=== PATIENT | male | born 1960 | race African-American/Black ===

== ENCOUNTER 2018-12-20 23:49 | Emergency (ER) | payer MEDICAID, OTHER ==
[~2018-12-20] VITALS: Ht 180.3 cm; Wt 113.0 kg
[2018-12-21] MEDS ORDERED: ALBUTEROL (0.5%) 2.5MG/0.5ML NEB HHN ONE (03:30)
[2018-12-21 04:57] VITALS: BP 159/76
== END 2018-12-21 04:59 | disposition home or self-care (01) ==
LOC: ER 23:49
DX: J40 Bronchitis, not specified as acute or chronic (principal); E11.9 Type 2 diabetes mellitus without complications; H54.40 Blindness, one eye, unspecified eye; Z89.511 Acquired absence of right leg below knee
CPT/HCPCS: 71045; 82962; 94640; 99283; J7611; Z7610

== ENCOUNTER 2019-08-03 22:53 | Emergency (ER) | payer MEDICAID ==
[~2019-08-03] VITALS: Ht 180.3 cm; Wt 123.0 kg
[2019-08-03] MEDS ORDERED: HYDROCODONE/ACETAMINOPHEN 5/325MG TABLET PO STA (23:33)
[2019-08-03] MEDS ORDERED: SODIUM CHLORIDE 0.9% 1,000 ML IV ONE (23:33)
[2019-08-03] MEDS ORDERED: VANCOMYCIN 1 G PREMIX 200 ML IV ONE (23:45)
[2019-08-03 23:56] LABS: BASOPHILS % 0.5 % (0.0-2.0); EOSINOPHILS % 1.3 % (0.0-5.0); HEMATOCRIT. 41.9 % (42.0-52.0); HEMOGLOBIN. 13.7 g/dL (14.0-18.0); LYMPHOCYTES % 11.2 % (20.0-50.0); MEAN CORPUSCULAR HEMOGLOBIN 24.5 pg (28.0-32.0); MEAN CORPUSCULAR VOLUME 75.1 fL (80.0-94.0); MEAN PLATELET VOLUME 7.6 fl (7.4-10.4); MONOCYTES % 8.8 % (2.0-8.0); NEUTROPHILS % 78.2 % (40.0-76.0); PLATELET 293 x1000/uL (130-400); RED BLOOD CELL COUNT 5.58 mill/uL (4.7-6.1); RED CELL DISTRIBUTION WIDTH 16.1 % (11.6-14.6)
[2019-08-04] LABS: CHLORIDE 107 mEq/L (98-107)
[2019-08-04] MEDS ORDERED: CLONIDINE 0.2MG TABLET PO ONE
[2019-08-04 00:01] LABS: PROTHROMBIN TIME 11.3 sec (9.6-11.0)
[2019-08-04 05:29] VITALS: BP 118/62
== END 2019-08-04 04:40 | disposition short-term general hospital (02) ==
LOC: ER 22:53 → CANBEDREQ 08-04 06:13
DX: T87.43 Infection of amputation stump, right lower extremity (principal); L03.115 Cellulitis of right lower limb; I16.0 Hypertensive urgency; E11.9 Type 2 diabetes mellitus without complications; Y84.8 Other medical procedures as the cause of abnormal reaction of the patient, or of later complication, without mention of misadventure at the time of the procedure; Y92.89 Other specified places as the place of occurrence of the external cause
CPT/HCPCS: 36415; 73562; 80053; 82962; 84145; 84484; 85025; 85610; 87040; 96365; 99291; J3370; J7030

== ENCOUNTER 2020-02-08 19:36 | Emergency (ER) | payer MEDICAID ==
[~2020-02-08] VITALS: Ht 172.7 cm; Wt 120.0 kg
[2020-02-08] MEDS ORDERED: ACETAMINOPHEN 325MG TABLET PO ONE (20:45)
[2020-02-08] MEDS ORDERED: ACETAMINOPHEN WITH CODEINE 300/30MG TABLET PO ONE (21:00)
[2020-02-08 21:43] VITALS: BP 168/73
== END 2020-02-08 21:45 | disposition home or self-care (01) ==
LOC: ER 19:36
DX: R10.31 Right lower quadrant pain (principal); E11.9 Type 2 diabetes mellitus without complications; I10 Essential (primary) hypertension
CPT/HCPCS: 99283

== ENCOUNTER 2020-08-30 23:34 | Emergency (ER) | payer MEDICAID, MEDICARE ==
[~2020-08-30] VITALS: Ht 180.3 cm; Wt 150.0 kg
[2020-08-30 23:45] VITALS: BP 189/80
[2020-08-31] MEDS ORDERED: SULF1TAB48 MT (03:42)
[2020-08-31] MEDS ORDERED: CEPH500T MT (03:42)
[2020-08-31] MEDS ORDERED: SULFAMETHOXAZOLE/TRIMETHOPRIM 800/160MG TABLET PO ONE (03:45)
[2020-08-31] MEDS ORDERED: CEPHALEXIN 250MG CAPSULE PO ONE (03:45)
[2020-08-31] MEDS ORDERED: ACETAMINOPHEN 325MG TABLET PO ONE (04:15)
[2020-08-31 05:27] LABS: CLARITY URINE CLEAR (CLEAR); COLOR URINE YELLOW (YELLOW); KETONES URINE NEGATIVE (NEGATIVE); LEUKOCYTE ESTERASE URINE NEGATIVE (NEGATIVE); NITRITE URINE NEGATIVE (NEGATIVE); OCCULT BLOOD URINE TRACE (NEGATIVE); PH URINE 5.5 (4.5-8.0); PROTEIN URINE 2+ (NEGATIVE); SPECIFIC GRAVITY URINE 1.012 (1.005-1.030); UROBILINOGEN URINE 0.2 E.U./dL (0.2-1.0)
== END 2020-08-31 04:54 | disposition home or self-care (01) ==
LOC: ER 23:34
DX: L03.314 Cellulitis of groin (principal); E11.9 Type 2 diabetes mellitus without complications; E66.01 Morbid (severe) obesity due to excess calories; H54.40 Blindness, one eye, unspecified eye; I88.9 Nonspecific lymphadenitis, unspecified; Z89.512 Acquired absence of left leg below knee; Z89.511 Acquired absence of right leg below knee; Z79.899 Other long term (current) drug therapy; Z68.42 Body mass index [BMI] 45.0-49.9, adult
CPT/HCPCS: 81003; 93005; 99284

== ENCOUNTER 2020-10-05 02:44 | Inpatient (IN) | payer MEDICAID ==
[~2020-10-05] VITALS: Ht 167.6 cm; Wt 172.8 kg
[~2020-10-05 02:44] MED LIST: CEPH500T MT; SULF1TAB48 MT
[2020-10-05 04:07] LABS: BASOPHILS % 0.5 % (0.0-2.0); EOSINOPHILS % 2.5 % (0.0-5.0); HEMATOCRIT. 35.7 % (42.0-52.0); HEMOGLOBIN. 11.4 g/dL (14.0-18.0); MEAN CORPUSCULAR HEMOGLOBIN 23.5 pg (28.0-32.0); MEAN PLATELET VOLUME 7.3 fl (7.4-10.4); MONOCYTES % 11.7 % (2.0-8.0); NEUTROPHILS % 73.3 % (40.0-76.0); PLATELET 334 x1000/uL (130-400); RED BLOOD CELL COUNT 4.83 mill/uL (4.7-6.1); RED CELL DISTRIBUTION WIDTH 16.4 % (11.6-14.6)
[2020-10-05 04:10] LABS: CHLORIDE 110 mEq/L (98-107)
[2020-10-05] MEDS ORDERED: MORPHINE SULFATE 4 MG/ML CPJ (NOT FOR IM USE) IV ONE (05:45)
[2020-10-05 12:00] VITALS: BP 106/63
[2020-10-05] MEDS: AMLODIPINE 10MG TABLET PO SCH (12:31)
[2020-10-05] MEDS: HYDROCODONE/ACETAMINOPHEN 10/325MG TABLET PO PRN ×2 (12:32→22:19)
[2020-10-05 13:00] VITALS: BP 155/73
[2020-10-05] MEDS: ONDANSETRON HCL 4MG/2ML INJ IV PRN ×2 (15:36→22:17)
[2020-10-05 16:00] VITALS: BP 153/64
[2020-10-05] MEDS: ACETAMINOPHEN 325MG TABLET PO PRN (17:54)
[2020-10-05] MEDS: ENOXAPARIN 30MG/0.3ML SYR SUBCUT SCH (17:54)
[2020-10-05 20:00] VITALS: BP 99/64
[2020-10-05] MEDS ORDERED: ENOXAPARIN 40MG/0.4ML SYR SUBCUT SCH (21:00)
[2020-10-06] VITALS: BP 105/85
[2020-10-06] MEDS ORDERED: MORPHINE SULFATE 2 MG/ML CPJ (NOT FOR IM USE) IV SCH (01:00)
[2020-10-06 04:00] VITALS: BP 158/73
[2020-10-06 04:19] LABS: BASOPHILS % 0.3 % (0.0-2.0); EOSINOPHILS % 0.1 % (0.0-5.0); HEMATOCRIT. 37.1 % (42.0-52.0); HEMOGLOBIN. 11.5 g/dL (14.0-18.0); LYMPHOCYTES % 8.8 % (20.0-50.0); MEAN CORPUSCULAR HEMOGLOBIN 23.1 pg (28.0-32.0); MEAN CORPUSCULAR VOLUME 74.6 fL (80.0-94.0); MEAN PLATELET VOLUME 7.2 fl (7.4-10.4); MONOCYTES % 4.5 % (2.0-8.0); NEUTROPHILS % 86.3 % (40.0-76.0); PLATELET 338 x1000/uL (130-400); RED BLOOD CELL COUNT 4.96 mill/uL (4.7-6.1); RED CELL DISTRIBUTION WIDTH 16.4 % (11.6-14.6)
[2020-10-06] MEDS: ENOXAPARIN 30MG/0.3ML SYR SUBCUT SCH ×2 (05:56→18:15)
[2020-10-06 08:00] VITALS: BP 163/78
[2020-10-06] MEDS: ONDANSETRON HCL 4MG/2ML INJ IV PRN ×2 (08:25→22:52)
[2020-10-06] MEDS: AMLODIPINE 10MG TABLET PO SCH (08:25)
[2020-10-06 12:00] VITALS: BP 122/83
[2020-10-06 12:28] LABS: INR 1.2; PROTHROMBIN TIME 12.4 sec (9.6-11.0)
[2020-10-06] MEDS ORDERED: SODIUM BICARBONATE 4% (2.4MEQ) 5ML VIAL IV ONE (12:45)
[2020-10-06] MEDS ORDERED: LIDOCAINE HCL 1% 20ML VIAL (Pyxis) INJ ONE (12:45)
[2020-10-06 16:00] VITALS: BP 129/52
[2020-10-06] MEDS ORDERED: HYDR-4009 MT (17:55)
[2020-10-06 20:00] VITALS: BP 145/56
[2020-10-06] MEDS: ACETAMINOPHEN 325MG TABLET PO PRN (22:53)
[2020-10-07] VITALS (9 sets, daily range): BP systolic 118–162; BP diastolic 44–74
[2020-10-07] MEDS ORDERED: MAGNESIUM/ALUMINUM HYDROXIDE/SIMETHICONE 30ML UDC PO PRN (04:45)
[2020-10-07] MEDS ORDERED: IPRATROPIUM/ALBUTEROL 0.5-3(2.5)MG/3ML NEB HHN PRN ×2 (04:45)
[2020-10-07] MEDS: PANTOPRAZOLE 40MG DR TABLET PO SCH (05:09)
[2020-10-07] MEDS: BLOOD SUGAR DIAGNOSTIC STRIP TEST SCH ×4 (05:38→20:08)
[2020-10-07] MEDS ORDERED: DEXTROSE 50% WATER 50ML SYRINGE IV PRN (05:45)
[2020-10-07] MEDS: ENOXAPARIN 30MG/0.3ML SYR SUBCUT SCH ×2 (05:51→18:00)
[2020-10-07] MEDS: INSULIN LISPRO 100 UNITS/ML SUBCUT SCH ×4 (05:54→21:21)
[2020-10-07] MEDS ORDERED: BLOOD SUGAR DIAGNOSTIC STRIP TEST SCH (07:10)
[2020-10-07] MEDS: AMLODIPINE 10MG TABLET PO SCH (08:55)
[2020-10-07] MEDS ORDERED: LEVOFLOXACIN 250MG TABLET PO SCH (12:00)
[2020-10-07] MEDS: IPRATROPIUM/ALBUTEROL 0.5-3(2.5)MG/3ML NEB HHN SCH ×4 (12:00→23:39)
[2020-10-07] MEDS: GUAIFENESIN 600MG ER TABLET PO SCH ×2 (12:41→21:20)
[2020-10-07 12:54] LABS: BG BASE EXCESS -0.6 mmol/L (-2.0-2.0); BG CARBOXYHEMOGLOBIN 0.5 % (0.5-1.5); BG DEOXYHEMOGLOBIN 20.8 % (0.0-5.0); BG FRACTION INSPIRED OXYGEN 21; BG HCO3 ACT 25.3 mmol/L (22.0-26.0); BG METHEMOGLOBIN 0.3 % (0.0-1.5); BG OXYHEMOGLOBIN 78.4 % (94.0-97.0); BG PCO2 46.9 mmHg (35.0-45.0); BG PH 7.349 (7.350-7.450); BG TOTAL HEMOGLOBIN 11.3 g/dL (12.0-18.0); BG VENT MODE ROOM AIR
[2020-10-07] MEDS ORDERED: INSULIN GLARGINE UD 100 UNITS/ML SYR SUBCUT SCH (14:00)
[2020-10-07] MEDS ORDERED: ALBUTEROL 6.7GM HFA INHALER ORI PRN (17:15)
[2020-10-07] MEDS: INSULIN GLARGINE UD 100 UNITS/ML SYR SUBCUT SCH (21:22)
[2020-10-08] VITALS: BP 112/52
[2020-10-08] MEDS: IPRATROPIUM/ALBUTEROL 0.5-3(2.5)MG/3ML NEB HHN SCH ×2 (03:45→09:34)
[2020-10-08 04:00] VITALS: BP 128/50
[2020-10-08] MEDS: BLOOD SUGAR DIAGNOSTIC STRIP TEST SCH (05:36)
[2020-10-08] MEDS: PANTOPRAZOLE 40MG DR TABLET PO SCH (06:10)
[2020-10-08] MEDS: ENOXAPARIN 30MG/0.3ML SYR SUBCUT SCH (06:10)
[2020-10-08] MEDS: INSULIN LISPRO 100 UNITS/ML SUBCUT SCH (06:13)
[2020-10-08 06:22] LABS: HEMATOCRIT. 32.4 % (42.0-52.0); HEMOGLOBIN. 10.3 g/dL (14.0-18.0); MEAN CORPUSCULAR HEMOGLOBIN 23.9 pg (28.0-32.0); MEAN PLATELET VOLUME 7.6 fl (7.4-10.4); PLATELET 269 x1000/uL (130-400); RED BLOOD CELL COUNT 4.32 mill/uL (4.7-6.1); RED CELL DISTRIBUTION WIDTH 16.5 % (11.6-14.6)
[2020-10-08 08:41] VITALS: BP 139/48
[2020-10-08] MEDS ORDERED: BUDESONIDE 0.25MG/2ML NEB HHN SCH (09:00)
[2020-10-08] MEDS: AMLODIPINE 10MG TABLET PO SCH (09:37)
[2020-10-08] MEDS: GUAIFENESIN 600MG ER TABLET PO SCH (09:37)
[2020-10-08] MEDS: INSULIN GLARGINE UD 100 UNITS/ML SYR SUBCUT SCH (09:41)
[2020-10-08 09:59] VITALS: BP 139/48
[2020-10-08] MEDS ORDERED: LEVOFLOXACIN 250MG TABLET PO SCH (11:00)
[2020-10-08 17:14] LABS: PLATELET ESTIMATE NORMAL
[2020-10-08] MEDS ORDERED: INSULIN GLARGINE UD 100 UNITS/ML SYR SUBCUT SCH (22:00)
[2020-10-09] MEDS ORDERED: FAMOTIDINE 20MG TABLET PO SCH (07:10)
== END 2020-10-08 11:05 | disposition short-term general hospital (02) | DRG 681 ==
LOC: ER 02:56 → ENRESERV 11:02 → 6EST 11:55 → 8WST 10-07 00:30
PROVIDERS: ADMIT Internal Medicine Pulmonary Disease; ATTEND Internal Medicine Pulmonary Disease
PROC: 07BH3ZX Excision of Right Inguinal Lymphatic, Percutaneous Approach, Diagnostic (ICD-10-PCS; principal; 2020-10-06)
DX: C85.95 Non-Hodgkin lymphoma, unspecified, lymph nodes of inguinal region and lower limb (principal); N17.0 Acute kidney failure with tubular necrosis; J96.00 Acute respiratory failure, unspecified whether with hypoxia or hypercapnia; E44.0 Moderate protein-calorie malnutrition; E11.65 Type 2 diabetes mellitus with hyperglycemia; R10.9 Unspecified abdominal pain; E11.22 Type 2 diabetes mellitus with diabetic chronic kidney disease; H54.61 Unqualified visual loss, right eye, normal vision left eye; D63.8 Anemia in other chronic diseases classified elsewhere; E11.51 Type 2 diabetes mellitus with diabetic peripheral angiopathy without gangrene; D50.9 Iron deficiency anemia, unspecified; Z20.822 Contact with and (suspected) exposure to COVID-19; E66.01 Morbid (severe) obesity due to excess calories; N18.9 Chronic kidney disease, unspecified; I12.9 Hypertensive chronic kidney disease with stage 1 through stage 4 chronic kidney disease, or unspecified chronic kidney disease; Z68.44 Body mass index [BMI] 60.0-69.9, adult; Z71.3 Dietary counseling and surveillance
CPT/HCPCS: 36415; 36600; 38505; 70486; 71045; 74176; 76942; 78582; 80048; 80053; 82375; 82805; 82962; 83036; 83615; 83880; 84550; 85025; 87426; 88305; 94640; 99285; A9558; J1650; J1815; J2270; J2405; J3490; J7626